=== PATIENT | male | born 1990 | race African-American/Black ===

== ENCOUNTER 2023-12-15 00:24 | Emergency (ER) | payer OTHER ==
[~2023-12-15] VITALS: Ht 188 cm; Wt 148.0 kg
[2023-12-15 01:04] VITALS: TEMP 98.5; O2SAT 98
[2023-12-15] MEDS: SODIUM CHLORIDE 0.9% 1,000 ML IV ONE ×2 (01:44→01:45)
[2023-12-15] MEDS: ACETAMINOPHEN 1000MG/100ML 100 ML IV ONE (01:45)
[2023-12-15] MEDS: AMPICILLIN SOD/SULBACTAM NA 3 G in SODIUM CHLORIDE 0.9% 100 ML IV ONE (01:45)
[2023-12-15 02:04] LABS: BASOPHILS % 0.3 % (0.0-2.0); EOSINOPHILS % 0.5 % (0.0-5.0); HEMATOCRIT. 44.2 % (42.0-52.0); HEMOGLOBIN. 14.8 g/dL (14.0-18.0); LYMPHOCYTES % 27.2 % (20.0-50.0); MEAN CORPUSCULAR HEMOGLOBIN 28.5 pg (28.0-32.0); MEAN CORPUSCULAR HGB CONC 33.6 g/dL (31.0-37.0); MEAN CORPUSCULAR VOLUME 84.9 fL (80.0-94.0); MEAN PLATELET VOLUME 9.6 fl (7.4-10.4); MONOCYTES % 6.3 % (2.0-8.0); NEUTROPHILS % 65.7 % (40.0-76.0); PLATELET 189 x1000/uL (130-400); RED BLOOD CELL COUNT 5.21 mill/uL (4.7-6.1); RED CELL DISTRIBUTION WIDTH 16.3 % (11.6-14.6); WHITE BLOOD COUNT 13.1 x1000/uL (4.5-11.0)
[2023-12-15 02:05] LABS: PROTHROMBIN TIME 11.1 sec (9.6-11.0)
[2023-12-15 02:14] LABS: CHLORIDE 105 mEq/L (98-107); POTASSIUM 4.1 mEq/L (3.5-5.1); SODIUM 137 mEq/L (136-145)
[2023-12-15 02:15] LABS: CALCIUM 9.9 mg/dL (8.7-10.4); CARBON DIOXIDE 24 mEq/L (21-32)
[2023-12-15 02:20] VITALS: BP 157/96; PULSE 81; RESP 17
[2023-12-15 02:20] LABS: GLUCOSE 91 mg/dL (70-105); UREA NITROGEN BLOOD 12 mg/dL (9-23)
[2023-12-15 02:22] LABS: ALANINE AMINOTRANSFERASE 59 IU/L (10-49); ALBUMIN 4.6 g/dL (3.2-4.8); ASPARTATE AMINOTRANSFERASE 39 IU/L (<34); CREATINE KINASE 1079 IU/L (46-171)
[2023-12-15 02:23] LABS: BILIRUBIN TOTAL 0.4 mg/dL (0.1-1.0); PROTEIN TOTAL 7.1 g/dL (6.0-8.3)
[2023-12-15 02:31] LABS: ETHANOL BLOOD < 10 mg/dL (<10)
[2023-12-15 04:40] LABS: *AMPHETAMINES SCREEN URINE NEGATIVE (NEGATIVE); *BARBITURATES SCREEN URINE NEGATIVE (NEGATIVE); *BENZODIAZEPINES SCREEN URINE NEGATIVE (NEGATIVE); *COCAINE SCREEN URINE NEGATIVE (NEGATIVE); CANNABINOID URINE SCREEN PRESUMPTIVE POSITIVE (NEGATIVE); ECSTASY MDMA SCREEN URINE NEGATIVE (NEGATIVE); METHADONE URINE SCREEN NEGATIVE (NEGATIVE); OPIATES URINE SCREEN NEGATIVE (NEGATIVE); PHENCYCLIDINE URINE SCREEN NEGATIVE (NEGATIVE)
[2023-12-15] MEDS ORDERED: AMOX1TAB16 MT (05:32)
[2023-12-15] MEDS ORDERED: NAPR275T96 MT (05:32)
[2023-12-15] MEDS ORDERED: IBUP-2030 MT (05:54)
[2023-12-15 06:04] LABS: CLARITY URINE CLEAR (CLEAR); COLOR URINE YELLOW (YELLOW); GLUCOSE URINE NEGATIVE (NEGATIVE); KETONES URINE NEGATIVE (NEGATIVE); LEUKOCYTE ESTERASE URINE TRACE (NEGATIVE); NITRITE URINE NEGATIVE (NEGATIVE); OCCULT BLOOD URINE NEGATIVE (NEGATIVE); PH URINE 5.5 (4.5-8.0); PROTEIN URINE NEGATIVE (NEGATIVE); SPECIFIC GRAVITY URINE 1.021 (1.005-1.030); UROBILINOGEN URINE 0.2 E.U./dL (0.2-1.0)
[2023-12-15] MEDS: AMOXICILLIN/POTASSIUM CLAVULANATE 875/125MG TAB PO ONE (06:07)
[2023-12-15 06:15] LABS: RBC URINE 0-2 /hpf (0-2); SQUAMOUS EPITHELIAL CELL URINE NONE SEEN /lpf (RARE/1+); WBC URINE 0-2 /hpf (0-2)
[2023-12-15 06:18] LABS: BACTERIA URINE NONE SEEN
== END 2023-12-15 06:38 | disposition home or self-care (01) ==
LOC: ER 00:24
DX: K04.7 Periapical abscess without sinus (principal)
CPT/HCPCS: 80053; 80305; 81003; 80320; 82550; 83880; 83605; 85025; 85610; 87040; 87086; 36415; 84145; 71045; 70491; 96368; 96365; 99285; J0295; J7050; J7030; Z7610 ×2; G0480; J0131